=== PATIENT | female | born 1955 | race African-American/Black ===

== ENCOUNTER 2016-08-02 10:15 | Emergency (ER) | payer BC ==
[2016-08-02] MEDS ORDERED: BOOSTRIX IM ONE (10:58)
--- NOTE | 2016-08-02 10:58 | XRay Report ---
RIGHT FINGER RADIOGRAPHS INDICATION: Trauma. COMPARISON: None similar. FINDINGS: An AP view of the right hand with oblique and lateral projections centered on the second digit demonstrate partial distal amputation of the second distal phalanx with overlying soft tissue injury/heterogeneity and possible overlying bandage. Mild osteoarthritic changes at the interphalangeal joints noted. Normal remainder exam. CONCLUSION: Right index finger posttraumatic appearance/partial amputation distally, as detailed above. Thank you for the opportunity to participate in this patient's care.
[2016-08-02] MEDS ORDERED: XYLOCAINE 2% INFILTRATI ONE (10:59)
[2016-08-02] MEDS ORDERED: NORCO 5/325 PO ONE ×2 (10:59→14:03)
[2016-08-02] MEDS ORDERED: ceFAZolin 2 GM in NACL 0.9% 100 ML IV ONE (10:59)
[2016-08-02] MEDS ORDERED: TRIPLE ANTIBIOTIC TP ONE (11:00)
--- NOTE | 2016-08-02 11:00 | Emergency Department Report ---
ED Upper Extremity Inj HPI - General Chief Complaint: Extremity Injury, Upper Stated Complaint: FINGER LAC Time Seen by Provider: 08/02/16 10:54 Source: patient Mode of arrival: Ambulatory Limitations: No Limitations - History of Present Illness Complaint: Injury to:: right, finger Onset/Timin -: hour(s) Other Extremity Injury: Fingers: Right Other Injuries: none Handedness: right Place: home Severity scale (0 -10): 7 Improves With: immobilization Worsens With: movement of extremity Context: direct blow, laceration Treatments Prior to Arrival: bandage - Related Data Allergies Allergy/AdvReac Type Severity Reaction Status Date / Time No Known Allergies Allergy Unverified 04/13/14 08:31 ED Review of Systems ROS: Stated complaint: FINGER LAC Other details as noted in HPI ED Past Medical Hx - Past Medical History Hx Hypertension: Yes - Surgical History Past Surgical History?: Yes - Social History Smoking Status: Never Smoker Substance Use Type: None ED Physical Exam - General Limitations: No Limitations ED Course Vital Signs 08/02/16 10:17 Temperature 98.2 F Pulse Rate 82 Respiratory 22 Rate Blood Pressure 158/85 O2 Sat by Pulse 98 Oximetry Critical care attestation.: If time is entered above; I have spent that time in minutes in the direct care of this critically ill patient, excluding procedure time. ED Disposition Condition: Stable Referrals: PRIMARY CARE, [Primary Care Provider] - 3-5 Days
[2016-08-02] MEDS ORDERED: NACL 0.9% 1000 ML 1,000 ML ONE (11:28)
[2016-08-02] MEDS ORDERED: NACL 0.9% 1000 ML 1,000 ML IV ONE (11:41)
[2016-08-02 14:23] VITALS: BP 170/96
--- NOTE | 2016-08-04 12:25 | Emergency Department Report ---
Entered by TANYA ESTRADA, acting as scribe for MIHAI ALLEN PA. Upper Extremity - HPI Chief Complaint: Extremity Injury, Upper Stated Complaint: FINGER LAC Time Seen by Provider: 08/02/16 10:54 Upper Extremity: Right Hand (distal tip of the right second finger) Occurred When: Today Mechanism: Crush (patient closed a glass window at home on the affected finger) Severity: severe (01/06) Symptoms: Yes Laceration or Abrasion (amputation of the distal tip of the right second finger), No Limited Range of Movement, No Numbness, No Weakness Other History: 61 y/o female with PMHx of HTN, presents to the ED c/o amputation of the distal tip of the right second finger that occurred today. The patient states that she closed a window on the affected finger. Associated symptoms of pain and tenderness in the affected area and dizziness, but she denies LOC. ED Review of Systems ROS: Stated complaint: FINGER LAC Other details as noted in HPI Comment: All other systems reviewed and negative Musculoskeletal: other (amputation and pain of the distal tip of the right second finger) Skin: other (distal tip of the right second finger pain and amputation) Neurological: other (dizziness, denies LOC) ED Past Medical Hx - Past Medical History Hx Hypertension: Yes - Surgical History Past Surgical History?: Yes - Social History Smoking Status: Never Smoker Substance Use Type: None - Medications Home Medications: Home Medications Medication Instructions Recorded Confirmed Last Taken Type Cephalexin [Keflex] 500 mg PO BID #14 capsule 08/02/16 Unknown Rx HYDROcodone/APAP 5-325 [[place] 1 each PO Q6HR PRN #20 tablet 08/02/16 Unknown Rx 5/325] Naproxen [Naproxen TAB] 250 mg PO BID PRN #25 tablet 08/02/16 Unknown Rx Sulfamethoxazole/Trimethoprim 1 each PO BID #14 tablet 08/02/16 Unknown Rx [Bactrim DS TAB] Upper Extremity Exam - Exam General: Vital signs noted. No distress. Alert and acting appropriately. Head and Torso: No HEENT Abnormality (external bilateral ears and external nose are normal with no obvious lesions), No Neck Tenderness (supple ROM), No Chest/ Lungs Abnormality Shoulder Exam: Yes Normal Range of Motion in Shoulder, No Shoulder Deformity Arm Exam: No Arm/Humerus Tenderness, No Arm Deformity Elbow: Yes Normal Range of Motion in Elbow, No Elbow Tenderness, No Elbow Deformity Forearm: No Forearm Tenderness, No Forearm Deformity, No Pain with Pronation, No Pain with Supination Wrist: Yes Normal ROM in Wrist, No Wrist Tenderness, No Wrist Deformity Hand: Yes Digit Tenderness (distal tip of the right second finger is tender ), Yes Normal ROM in Digit(s), Yes Digit(s) Deformity (amputation of the distal tip of the right second finger with small amount of exposed bone, with active mild bleeding that is consistent with an arterial bleed) CMS Exam: Yes Broken Skin, Yes Normal Distal Pulses, Yes Normal Capillary Refill , Yes Normal Distal Sensation Hand L/R Front: 1 - amputation of the distal right second finger ED Course Vital Signs 08/02/16 10:17 Temperature 98.2 F Pulse Rate 82 Respiratory 22 Rate Blood Pressure 158/85 O2 Sat by Pulse 98 Oximetry - Laceration /Wound Repair Right Distal Finger Wound Location: upper extremity (distal right second finger) Wound Explored: clean Betadine Prep?: Yes Anesthesia: 1% Lidocaine Wound Repaired With: sutures Suture Size/Type: 4:0 (chromic gut) Number of Sutures: 6 (with moderate hemostatis, patient tolerated well) ED Medical Decision Making - Medical Decision Making A/P: Right distal fingertip laceration/fingertip avulsion 1-tetanus vaccination updated today 2-I examined the patient with Dr. Barlow who also examined the patient's wound 3-I attempted suture ligation with 4-0 chromic gut and placed 6 sutures with moderate decrease of bleeding. Small arterial laceration. Entire distal fingertip beyond distal interphalangeal joints has been sliced off. Wound thoroughly irrigated with iodine and saline mixture. I placed Surgicell and xeroform over the laceration and a tight fitting gauze dressing over the Surgicel and Xeroform 4- I discussed case with Dr. Holman or orthopedics regarding fingertip surgery. Dr. Holman agrees that ancef was necessary, will f/u with pt in office tomorrow. E instrcuted me to tell pt to call office number at 9AM [phone] to arrange exact time of appt tomorrow. I informed Dr. Barlow of this update 5-Bactrim and Keflex twice a day 7 days 6- Motrin and [place] short course when necessary for pain control 7-provided patient with extra gauze in the event she begins bleeding heavily and advised her to return to the ED if she has excess bleeding fever or chills severe lightheadedness headache or weakness. Critical care attestation.: If time is entered above; I have spent that time in minutes in the direct care of this critically ill patient, excluding procedure time. ED Disposition Clinical Impression: Fingertip avulsion Qualifiers: Encounter type: initial encounter Qualified Code(s): S61.209A - Unspecified open wound of unspecified finger without damage to nail, initial encounter Disposition: DISCHARGED TO HOME OR SELFCARE Is pt being admited?: No Does the pt Need Aspirin: No Condition: Stable Instructions: Acute Wound Care (ED), Finger Amputation (ED) Additional Instructions: Patient instructed to call the orthopedic office tomorrow for follow-up discussed with Dr. Holman. Prescriptions: Cephalexin [Keflex] 500 mg PO BID #14 capsule HYDROcodone/APAP 5-325 [[place] 5/325] 1 each PO Q6HR PRN #20 tablet PRN Reason: Pain Naproxen [Naproxen TAB] 250 mg PO BID PRN #25 tablet PRN Reason: Pain Sulfamethoxazole/Trimethoprim [Bactrim DS TAB] 1 each PO BID #14 tablet Referrals: IZAIAH HOLMAN MD [Staff Physician] - 3-5 Days ARMEN FARR MD [Staff Physician] - 3-5 Days Forms: Accompanied Note, Work/School Release Form(ED) Time of Disposition: 14:04 This documentation as recorded by the SEAN lau GRACE,accurately reflects the service I personally performed and the decisions made by me,MIHAI ALLEN PA.
== END 2016-08-02 14:24 | disposition home or self-care (01) ==
LOC: ED 10:15
DX: S61.210A Laceration without foreign body of right index finger without damage to nail, initial encounter (principal); I10 Essential (primary) hypertension; W23.0XXA Caught, crushed, jammed, or pinched between moving objects, initial encounter; Y93.89 Activity, other specified; Y99.8 Other external cause status; Y92.098 Other place in other non-institutional residence as the place of occurrence of the external cause
CPT/HCPCS: 12001; 73140; 90471; 90715; 96365; 99283; J0690; J7030; A6250